=== PATIENT | female | born 1990 | race Two or more races ===

== ENCOUNTER 2018-03-31 09:46 | Emergency (ER) | payer SELFPAY ==
--- NOTE | 2018-03-31 10:03 | ER Document Report ---
HPI - HPI Patient complains to provider of: Widespread body pain Onset: Other - 6 months Onset/Duration: Waxing and waning Pain Level: 5 Context: 27-year-old female complaining of widespread body pain for at least 6 months. It waxes and wanes. Today it is especially in her left upper back and left arm. Bilateral hips and low back. She did do some reading and has family members with fibromyalgia. She is tearful. No fever or chills. No rash. No PCP. Associated Symptoms: None Exacerbated by: Movement Relieved by: Other - Motrin use to help - ROS ROS below otherwise negative: Yes Systems Reviewed and Negative: Yes All other systems reviewed and negative Past Medical History - General Information source: Patient - Social History Smoking Status: Current Every Day Smoker Frequency of alcohol use: None Drug Abuse: None Lives with: Spouse/Significant other Family History: Reviewed & Not Pertinent - Medical History Medical History: Negative Past Surgical History: Reports: Hx Section Vertical Provider Document - CONSTITUTIONAL Agree With Documented VS: Yes Exam Limitations: No Limitations General Appearance: Mild Distress - Holding left arm stiffly, elbow flexed. - HEENT HEENT: Normal ENT Exam, Normocephalic - NECK Neck: Supple, Thyroid Normal. negative: Lymphadenopathy-Left, Lymphadenopathy- Right - RESPIRATORY Respiratory: Breath Sounds Normal, No Respiratory Distress - CARDIOVASCULAR Cardiovascular: Regular Rate, Regular Rhythm - MUSCULOSKELETAL/EXTREMETIES Musculoskeletal/Extremeties: MAEW, FROM, Tender - Bilateral hips to light touch , left periscapular - NEURO Level of Consciousness: Awake, Alert Motor/Sensory: No Motor Deficit, No Sensory Deficit - DERM Integumentary: Warm, Dry, No Rash Course - Re-evaluation Re-evalutation: 03/31/18 11:43 discussed lab results with pt and need for FP follow up. glucose 150, crp elevated. she will call me back for the NILTON and the TSH. I do suspect fibromyalgia. 03/31/18 11:43 - Laboratory Result Diagrams: 03/31/18 10:24 03/31/18 10:24 Discharge - Discharge Clinical Impression: widespread musculoskeletal pain, Elevated glucose Condition: Good Disposition: HOME, SELF-CARE Instructions: Warm Packs ([facility]), Ibuprofen (General) ([facility]), Acetaminophen, Family Physicians / Practices Additional Instructions: call me for the thyroid test in 1 hour [phone] motrin 800 mg up to 3 times per day tylenol up to 4000 mg per day see family practice doctor, call for appt today, you need further testing for you elevated glucose level todayl referral to rhuematologist to er if worse Prescriptions: Ibuprofen [Motrin 800 mg Tablet] 800 mg PO Q8HP PRN #30 tablet PRN Reason: Referrals: DMITRY GARCIA MD [ACTIVE STAFF] - Follow up as needed ADDIE MARTINEZ NP [COMMUNITY BASED STAFF] - Follow up as needed
[2018-03-31 10:46] LABS: ABSOLUTE BASOPHILS # (AUTO) 0.1 10^3/uL (0.0-0.2); ABSOLUTE EOSINOPHILS # (AUTO) 0.1 10^3/uL (0.0-0.6); ABSOLUTE LYMPHOCYTES (AUTO) 2.6 10^3/uL (0.5-4.7); ABSOLUTE MONOCYTES (AUTO) 0.5 10^3/uL (0.1-1.4); ABSOLUTE NEUT (AUTO) 9.3 10^3/uL (1.7-8.2); BASOPHILS % (AUTO) 0.5 % (0-2); EOSINOPHILS % (AUTO) 0.8 % (0-6); HEMOGLOBIN 12.6 g/dL (12.0-15.5); LYMPHOCYTES % (AUTO) 20.6 % (13-45); MEAN CORPUSCULAR HEMOGLOBIN 23.7 pg (27.0-33.4); MEAN CORPUSCULAR HGB CONC 32.3 g/dL (32.0-36.0); MEAN CORPUSCULAR VOLUME 73 fl (80-97); MONOCYTES % (AUTO) 3.7 % (3-13); PLATELET COUNT 355 10^3/uL (150-450); RED BLOOD COUNT 5.32 10^6/uL (3.72-5.28); RED CELL DISTRIBUTION WIDTH 15.6 % (11.5-14.0); SEGMENTED NEUTROPHILS % (AUTO) 74.4 % (42-78); TOTAL CELLS COUNTED % (AUTO) 100 %; WHITE BLOOD COUNT 12.6 10^3/uL (4.0-10.5)
[2018-03-31 11:15] LABS: ALANINE AMINOTRANSFERASE 28 U/L (9-52); ALBUMIN 4.5 g/dL (3.5-5.0); ALKALINE PHOSPHATASE 85 U/L (38-126); ANION GAP 16 (5-19); ASPARTATE AMINO TRANSFERASE 20 U/L (14-36); BILIRUBIN,DIRECT 0.2 mg/dL (0.0-0.4); BILIRUBIN,TOTAL 0.2 mg/dL (0.2-1.3); BLOOD UREA NITROGEN 10 mg/dL (7-20); C-REACTIVE PROTEIN 22.5 mg/L (<10.0); CALCIUM 9.8 mg/dL (8.4-10.2); CARBON DIOXIDE 27 mmol/L (22-30); CHLORIDE 102 mmol/L (98-107); GLUCOSE 153 mg/dL (75-110); POTASSIUM 4.5 mmol/L (3.6-5.0); SODIUM 145.2 mmol/L (137-145)
[2018-03-31 11:24] LABS: ERYTHROCYTE SEDIMENTATION RATE 20 mm/hr (0-20)
[2018-03-31] MEDS ORDERED: ACETAMINOPHEN 325 MG TABLET PO ONE (11:37)
[2018-03-31] MEDS ORDERED: IBUPROFEN 800 MG TABLET PO ONE (11:37)
[2018-03-31 11:40] VITALS: BP 121/74
== END 2018-03-31 11:44 | disposition home or self-care (01) ==
LOC: ER 09:46
DX: M79.1 Myalgia (principal); R73.9 Hyperglycemia, unspecified; M54.6 Pain in thoracic spine; M79.602 Pain in left arm; M25.551 Pain in right hip; M25.552 Pain in left hip; F17.200 Nicotine dependence, unspecified, uncomplicated
CPT/HCPCS: 36415; 80053; 84443; 85025; 85652; 86038; 86140; 86430; 99283